=== PATIENT | female | born 1975 | race Caucasian/White ===

== ENCOUNTER → 2016-11-24 | Outpatient (CLI) | payer BC ==
[~2016-11-24] MED LIST: ALBU8.5H4 IH; AZIT250T81 PO; BENZ-22 PO; CODE-54 PO; DOXY100T41 PO; HYDR-3754 PO; IBP200T PO; NAPR220C11 PO; NO HOME MEDS; PRED20TA PO; PRM25T PO; RABE20TA5 PO; VALA10004 PO; [UNRECOGNIZED DRUG - OTHER] PO
[2016-11-24 16:40] VITALS: BP 115/86
--- NOTE | 2016-11-24 16:40 | Urgent Care T Sheet Gen (E) ---
Intake General Temperature (Fahrenheit): 98.2 Pulse: 97 Blood Pressure Systolic: 115 Blood Pressure Diastolic: 86 Respirations: 18 SPO2: 97 Description of Symptoms Patient presents with illness x 1 week. States it started with sinus congestion and PND. Approx 4 days ago, the chest congestion and cough started. Patient feels achy. Been running 100-101 temp the last few nights. Been taking OTC sinus meds without improvement. History of Present Illness Allergies: Coded Allergies: No Known Drug Allergies (Unverified , 10/27/16) Home Meds Active Scripts Valacyclovir HCl (Valtrex)1,000 Mg Tablet1,000 Mg PO TID #21 TAB Prov:FRANCISCO JAVIER GUERRA MD 10/20/16 Prednisone 20 Mg [id number] Mg PO QID Inflammation #28 TAB Ref 0 Prov:FRANCISCO JAVIER GUERRA MD 10/20/16 Respiratory Constitutional Symptoms: Fever Malaise EENTM: Nose Congestion Throat pain Respiratory: CoughNo Short of breath, No Wheezing Cardiovascular: No symptoms reported Gastrointestinal/Abdominal: No symptoms reported All Other Systems Reviewed Remaining Systems: All other systems reviewed with negative findings Past Ykwcsfj-Kmnpzm-Seimhe Hx Patient's Social History Alcohol Use: Denies Use Smoking Status: Current some day smoker Recent foreign travel: No Surgeries/Hospitalizations Hospitalization/Surgery Hx: (two), partial hyst, Rt oopherectomy, Lt knee scope, Lap choly Difficulty awakening and vomiting with last anesthesia Respiratory Respiratory History: None Comment: denies Cardiovascular Cardiovascular History: None Reproductive System Sexually Transmitted Diseases: No Gastrointestinal GI/Endocrine History: Gallbladder problems, None Comment: choly Diabetes Diabetes: No HEENT Impaired Vision: Contacts, Glasses Hearing Impaired: None Psychosocial Behavior Disorders: None Physical Exam Physical Exam General Appearance: WD/WN No apparent distress Eyes, Ears, Nose, Throat Ex: TMs normal (air fluid bubbles) Pharyngeal erythema (cobblestone appearance; clear drainage.) Other (clear, thin nasal drainage. no red or swollen nasal turbinates.) Neck Exam: SuppleNo Lymphadenopathy Respiratory Exam: Lungs clear Normal breath sounds Cardiovascular Exam: Regular rate, rhythm Departure Urgent Care Impression Impression: Primary Impression: URI (upper respiratory infection) Qualified Code: J00 - Acute nasopharyngitis [common cold] Departure Disposition: HOME OR SELF-CARE Condition: Stable Referrals: Phillip Nelson MD (PCP) Additional Instructions: The patient appears to have a viral URI. Will treat symptomatically. Instead of the OTC sinus meds which haven't helped, I started her on Prednisone x 3 days. This should help with the sinus congestion and PND which I believe is causing her cough. Rest. Fluids If no better when steroid is finished, then she may start the Z-Pack I sent home. Return as needed or f/u with PCP Patient understands DC instructions. All questions were answered. Scripts Prednisone 20 Mg [id number] Mg PO DAILY #6 TAB Prov:PAMELA PORRAS 11/24/16 End of report . PAMELA PORRAS Nov 24, 2016 16:40
== END ==
LOC: MHUC 16:23
PROVIDERS: ATTEND Physician Assistant
DX: J00 Acute nasopharyngitis [common cold] (principal)
CPT/HCPCS: 99213